=== PATIENT | female | born 1980 | race Caucasian/White ===

== ENCOUNTER 2018-02-08 03:48 | Observation (INO) | END 2018-02-10 12:40 | disposition home or self-care (01) ==

== ENCOUNTER 2019-03-07 12:34 | Inpatient (IN) | payer OTHER ==
[~2019-03-07] VITALS: Ht 160 cm; Wt 100.0 kg
[~2019-03-07 12:34] MED LIST: CEPH-443 PO; DOCU-144 PO; HYDR-4011 PO; LEVO100T8 PO
[2019-03-07 15:23] VITALS: BP 102/59; PULSE 116; RESP 18
[2019-03-07] MEDS: SOD CHLORIDE 0.9% 1,000 ML IV SCH (16:28)
[2019-03-07] MEDS: KETOROLAC 15 MG INJ IV PRN (16:28)
[2019-03-07] MEDS ORDERED: NACL 0.9% 3 ML SYG IV SCH (16:30)
[2019-03-07] MEDS ORDERED: morphine 2 MG INJ IV PRN (16:30)
[2019-03-07 16:47] VITALS: Ht 160 cm; Wt 100.0 kg
[2019-03-07] MEDS: HYDROCODONE/APAP (5/325) TAB PO PRN (18:46)
[2019-03-07 19:50] VITALS: BP 100/61; PULSE 110; RESP 18
[2019-03-07] MEDS: TAMSULOSIN (SR) 0.4 MG CAP PO SCH (20:55)
[2019-03-07] MEDS: ONDANSETRON 4 MG INJ IV PRN (22:10)
[2019-03-07] MEDS: HYDROmorphONE 1 MG/ML SYG IV PRN (22:10)
[2019-03-08] VITALS (19 sets, daily range): BP systolic 102–149; BP diastolic 56–95; PULSE 76–133; RESP 14–25
[2019-03-08] MEDS: HYDROmorphONE 1 MG/ML SYG IV PRN ×2 (01:47→08:49)
[2019-03-08] MEDS ORDERED: ONDANSETRON 4 MG INJ IV STA (01:54)
[2019-03-08] MEDS: ACETAMINOPHEN 325 MG TAB PO PRN (02:24)
[2019-03-08] MEDS: LEVOTHYROXINE 88 MCG TAB PO SCH (06:00)
[2019-03-08] MEDS: SOD CHLORIDE 0.9% 1,000 ML IV SCH ×2 (06:10→20:41)
[2019-03-08] MEDS: CEFTRIAXONE 1 GM/50 ML (PMX) 50 ML IVPB SCH (08:48)
[2019-03-08] MEDS: ONDANSETRON 4 MG INJ IV PRN ×3 (08:55→21:18)
[2019-03-08] MEDS ORDERED: LACTATED RINGER'S 1,000 ML IV ONE (13:00)
[2019-03-08] MEDS ORDERED: ACETAMINOPHEN 1000MG/100ML IV 100 ML IVPB ONE (13:00)
[2019-03-08] MEDS: KETOROLAC 15 MG INJ IV PRN (14:22)
[2019-03-08] MEDS ORDERED: MIDAZOLAM 1 MG/ML 2 ML INJ ONE (18:21)
[2019-03-08] MEDS ORDERED: FENTAnyl 50 MCG/ML VIAL ONE (18:21)
[2019-03-08] MEDS ORDERED: PHENYLephrine 10 MG INJ ONE (18:38)
[2019-03-08] MEDS ORDERED: IOHEXOL 300MG/ML 30 ML BTL ONE (18:57)
[2019-03-08] MEDS ORDERED: LIDOCAINE 2% (SDV) 5 ML INJ ONE (19:16)
[2019-03-08] MEDS ORDERED: PROPOFOL 20 ML ONE (19:16)
[2019-03-08] MEDS ORDERED: ONDANSETRON 4 MG INJ ONE (19:17)
[2019-03-08] MEDS ORDERED: DIPHENHYDRAMINE 50 MG INJ IV PRN (19:30)
[2019-03-08] MEDS ORDERED: METOCLOPRAMIDE 10 MG INJ IV PRN (19:30)
[2019-03-08] MEDS ORDERED: HYDROmorphONE 1 MG/5 ML IV SYRINGE IV PRN ×2 (19:30)
[2019-03-08] MEDS ORDERED: FENTAnyl 50 MCG/ML VIAL IV PRN (19:30)
[2019-03-08] MEDS ORDERED: ONDANSETRON 4 MG INJ IV PRN (19:30)
[2019-03-08] MEDS ORDERED: DIPHENHYDRAMINE 50 MG INJ ONE (19:35)
[2019-03-08] MEDS: TAMSULOSIN (SR) 0.4 MG CAP PO SCH (20:33)
[2019-03-09] MEDS: ONDANSETRON 4 MG INJ IV PRN ×4 (02:30→21:03)
[2019-03-09] MEDS: KETOROLAC 15 MG INJ IV PRN ×2 (02:31→23:51)
[2019-03-09 04:13] VITALS: BP 108/56; PULSE 80; RESP 18
[2019-03-09] MEDS: ACETAMINOPHEN 325 MG TAB PO PRN (05:01)
[2019-03-09] MEDS: LEVOTHYROXINE 88 MCG TAB PO SCH (05:02)
[2019-03-09 07:28] VITALS: BP 103/65; PULSE 78; RESP 22
[2019-03-09] MEDS: HYDROmorphONE 1 MG/ML SYG IV PRN ×3 (08:55→21:03)
[2019-03-09] MEDS: CEFTRIAXONE 1 GM/50 ML (PMX) 50 ML IVPB SCH (08:55)
[2019-03-09] MEDS: SOD CHLORIDE 0.9% 1,000 ML IV SCH ×2 (11:00→21:13)
[2019-03-09 11:51] VITALS: BP 101/73; PULSE 74; RESP 22
[2019-03-09 15:55] VITALS: BP 123/85; PULSE 74; RESP 22
[2019-03-09] MEDS: HYDROCODONE/APAP (5/325) TAB PO PRN (18:05)
[2019-03-09 19:35] VITALS: BP 120/81; PULSE 75; RESP 20
[2019-03-09] MEDS: TAMSULOSIN (SR) 0.4 MG CAP PO SCH (21:03)
[2019-03-10] VITALS: BP 132/87; PULSE 68; RESP 20
[2019-03-10] MEDS: METOCLOPRAMIDE 10 MG INJ IV PRN ×3 (00:11→16:27)
[2019-03-10] MEDS: ONDANSETRON 4 MG INJ IV PRN ×2 (02:56→21:37)
[2019-03-10] MEDS: HYDROmorphONE 1 MG/ML SYG IV PRN ×4 (02:56→21:37)
[2019-03-10 04:00] VITALS: BP 115/71; PULSE 71; RESP 20
[2019-03-10] MEDS: LEVOTHYROXINE 88 MCG TAB PO SCH (06:15)
[2019-03-10 07:36] VITALS: BP 135/92; PULSE 65; RESP 20
[2019-03-10] MEDS: CEFTRIAXONE 1 GM/50 ML (PMX) 50 ML IVPB SCH (09:06)
[2019-03-10] MEDS: SOD CHLORIDE 0.9% 1,000 ML IV SCH (09:07)
[2019-03-10 11:19] VITALS: BP 121/75; PULSE 99; RESP 20
[2019-03-10 15:24] VITALS: BP 125/75; PULSE 78; RESP 20
[2019-03-10 19:46] VITALS: BP 118/77; PULSE 83; RESP 20
[2019-03-10] MEDS: TAMSULOSIN (SR) 0.4 MG CAP PO SCH (20:53)
[2019-03-11] VITALS: BP 127/83; PULSE 70; RESP 20
[2019-03-11] MEDS: HYDROmorphONE 1 MG/ML SYG IV PRN ×4 (03:03→19:50)
[2019-03-11 04:00] VITALS: BP 117/73; PULSE 63; RESP 20
[2019-03-11] MEDS: ACETAMINOPHEN 325 MG TAB PO PRN (05:44)
[2019-03-11] MEDS: LEVOTHYROXINE 88 MCG TAB PO SCH (05:44)
[2019-03-11 07:21] VITALS: BP 130/82; PULSE 66; RESP 18
[2019-03-11] MEDS: METOCLOPRAMIDE 10 MG INJ IV PRN (08:47)
[2019-03-11] MEDS: CEFTRIAXONE 1 GM/50 ML (PMX) 50 ML IVPB SCH (09:31)
[2019-03-11 11:01] VITALS: BP 112/84; PULSE 64; RESP 19
[2019-03-11 15:07] VITALS: BP 138/91; PULSE 59; RESP 19
[2019-03-11 19:42] VITALS: BP 134/76; PULSE 68; RESP 19
[2019-03-11] MEDS: TAMSULOSIN (SR) 0.4 MG CAP PO SCH (20:51)
[2019-03-12] VITALS (7 sets, daily range): BP systolic 118–166; BP diastolic 64–91; PULSE 61–82; RESP 18–20
[2019-03-12] MEDS: HYDROCODONE/APAP (7.5/325) TAB PO PRN ×3 (00:08→19:55)
[2019-03-12] MEDS: HYDROmorphONE 1 MG/ML SYG IV PRN ×4 (03:14→21:23)
[2019-03-12] MEDS: LEVOTHYROXINE 88 MCG TAB PO SCH (06:19)
[2019-03-12] MEDS: ACETAMINOPHEN 325 MG TAB PO PRN (08:09)
[2019-03-12] MEDS: CEFTRIAXONE 1 GM/50 ML (PMX) 50 ML IVPB SCH (08:10)
[2019-03-12] MEDS ORDERED: MAGNESIUM SULFATE 1 GM/D5W 100 ML IVPB ONE (10:30)
[2019-03-12] MEDS: ONDANSETRON 4 MG INJ IV PRN (17:58)
[2019-03-12] MEDS: TAMSULOSIN (SR) 0.4 MG CAP PO SCH (19:54)
[2019-03-13] VITALS (17 sets, daily range): BP systolic 107–139; BP diastolic 54–89; PULSE 63–92; RESP 17–24
[2019-03-13] MEDS: HYDROCODONE/APAP (7.5/325) TAB PO PRN ×3 (00:20→12:48)
[2019-03-13] MEDS: HYDROmorphONE 1 MG/ML SYG IV PRN ×4 (03:34→21:47)
[2019-03-13] MEDS: LEVOTHYROXINE 88 MCG TAB PO SCH (05:30)
[2019-03-13] MEDS: CEFTRIAXONE 1 GM/50 ML (PMX) 50 ML IVPB SCH (09:01)
[2019-03-13] MEDS: METOCLOPRAMIDE 10 MG INJ IV PRN (09:01)
[2019-03-13] MEDS: MEROPENEM 1 GM/50ML(PMX) 50 ML IVPB SCH ×2 (12:40→21:22)
[2019-03-13] MEDS ORDERED: PROPOFOL 20 ML ONE (17:02)
[2019-03-13] MEDS ORDERED: MIDAZOLAM 1 MG/ML 2 ML INJ ONE (17:02)
[2019-03-13] MEDS ORDERED: FENTAnyl 50 MCG/ML VIAL ONE ×2 (17:02→18:38)
[2019-03-13] MEDS ORDERED: CEFAZOLIN 1 GM INJ ONE (17:02)
[2019-03-13] MEDS ORDERED: ROCURONIUM 50 MG INJ ONE (17:02)
[2019-03-13] MEDS ORDERED: EPHEDrine 25 MG/5 ML SYG IV PRN (17:30)
[2019-03-13] MEDS ORDERED: MEPERIDINE 25 MG INJ IV PRN (17:30)
[2019-03-13] MEDS ORDERED: HYDROmorphONE 1 MG/5 ML IV SYRINGE IV PRN ×3 (17:30)
[2019-03-13] MEDS ORDERED: ONDANSETRON 4 MG INJ IV PRN (17:30)
[2019-03-13] MEDS ORDERED: OXYCODONE/ACETAMINOPHEN (5/325) TAB PO PRN (17:30)
[2019-03-13] MEDS ORDERED: hydrALAzine 20 MG INJ IV PRN (17:30)
[2019-03-13] MEDS ORDERED: METOCLOPRAMIDE 10 MG INJ IV PRN (17:30)
[2019-03-13] MEDS ORDERED: FENTAnyl 50 MCG/ML VIAL IV PRN ×3 (17:30)
[2019-03-13] MEDS ORDERED: LABETALOL HCL 20MG INJ IV PRN (17:30)
[2019-03-13] MEDS ORDERED: DIPHENHYDRAMINE 50 MG INJ IV PRN (17:30)
[2019-03-13] MEDS ORDERED: IOHEXOL 300MG/ML 30 ML BTL ONE (18:02)
[2019-03-13] MEDS ORDERED: DEXAMETHASONE 4 MG/ML 5 ML INJ ONE (18:35)
[2019-03-13] MEDS ORDERED: METOCLOPRAMIDE 10 MG INJ ONE (18:35)
[2019-03-13] MEDS ORDERED: KETOROLAC 30 MG INJ ONE (18:35)
[2019-03-13] MEDS ORDERED: ONDANSETRON 4 MG INJ ONE (18:35)
[2019-03-13] MEDS ORDERED: SUGAMMADEX SODIUM 200 MG/2 ML VIAL IV ONE (18:35)
[2019-03-14] MEDS: HYDROCODONE/APAP (7.5/325) TAB PO PRN ×3 (01:24→22:06)
[2019-03-14] MEDS: HYDROmorphONE 1 MG/ML SYG IV PRN ×2 (03:45→09:58)
[2019-03-14 04:08] VITALS: BP 125/69; PULSE 67; RESP 18
[2019-03-14] MEDS: LEVOTHYROXINE 88 MCG TAB PO SCH (06:01)
[2019-03-14 07:20] VITALS: BP 130/73; RESP 18
[2019-03-14] MEDS: MEROPENEM 1 GM/50ML(PMX) 50 ML IVPB SCH ×2 (09:16→20:34)
[2019-03-14 12:01] VITALS: BP 111/62; PULSE 68; RESP 18
[2019-03-14 15:24] VITALS: BP 121/70; PULSE 74; RESP 18
[2019-03-14] MEDS ORDERED: HYDROmorphONE 1 MG/ML SYG IV PRN (15:30)
[2019-03-14] MEDS: HYDROmorphONE 0.5 MG/0.5 ML SYG IV PRN ×2 (16:08→23:42)
[2019-03-14 19:53] VITALS: BP 119/63; PULSE 73; RESP 19
[2019-03-14 23:49] VITALS: BP 116/58; PULSE 79; RESP 20
[2019-03-15] MEDS: HYDROCODONE/APAP (7.5/325) TAB PO PRN ×3 (02:02→20:01)
[2019-03-15 04:00] VITALS: BP 131/81; PULSE 79; RESP 20
[2019-03-15] MEDS: LEVOTHYROXINE 88 MCG TAB PO SCH (06:11)
[2019-03-15 07:09] VITALS: BP 123/81; PULSE 68; RESP 18
[2019-03-15] MEDS: HYDROmorphONE 0.5 MG/0.5 ML SYG IV PRN ×2 (08:26→16:38)
[2019-03-15] MEDS: MEROPENEM 1 GM/50ML(PMX) 50 ML IVPB SCH ×2 (08:27→20:01)
[2019-03-15 11:37] VITALS: BP 107/64; PULSE 76; RESP 18
[2019-03-15 15:05] VITALS: BP 125/73; PULSE 71; RESP 16
[2019-03-15 20:24] VITALS: BP 117/65; PULSE 78; RESP 20
[2019-03-16] VITALS: BP 125/71; PULSE 75; RESP 20
[2019-03-16] MEDS: HYDROmorphONE 0.5 MG/0.5 ML SYG IV PRN ×4 (00:46→23:54)
[2019-03-16 04:10] VITALS: BP 111/62; PULSE 71; RESP 18
[2019-03-16] MEDS: LEVOTHYROXINE 88 MCG TAB PO SCH (06:49)
[2019-03-16] MEDS: HYDROCODONE/APAP (7.5/325) TAB PO PRN (06:49)
[2019-03-16 07:55] VITALS: BP 110/71; PULSE 85; RESP 18
[2019-03-16] MEDS: MEROPENEM 1 GM/50ML(PMX) 50 ML IVPB SCH ×2 (08:47→23:53)
[2019-03-16 12:00] VITALS: BP 133/77; PULSE 73; RESP 18
[2019-03-16 17:00] VITALS: BP 132/74; PULSE 78; RESP 18
[2019-03-16 19:30] VITALS: BP 115/59; PULSE 78; RESP 20
[2019-03-17 00:06] VITALS: BP 122/65; PULSE 82; RESP 20
[2019-03-17] MEDS: HYDROCODONE/APAP (7.5/325) TAB PO PRN ×3 (00:13→21:31)
[2019-03-17 04:54] VITALS: BP 98/52; PULSE 95; RESP 18
[2019-03-17] MEDS: LEVOTHYROXINE 88 MCG TAB PO SCH (06:45)
[2019-03-17 07:18] VITALS: BP 106/55; PULSE 86; RESP 18
[2019-03-17] MEDS: MEROPENEM 1 GM/50ML(PMX) 50 ML IVPB SCH ×2 (08:51→20:19)
[2019-03-17] MEDS: HYDROmorphONE 0.5 MG/0.5 ML SYG IV PRN ×2 (08:51→17:58)
[2019-03-17 11:12] VITALS: BP 109/67; PULSE 94; RESP 19
[2019-03-17 15:28] VITALS: BP 117/65; PULSE 92; RESP 19
[2019-03-17 19:45] VITALS: BP 112/67; PULSE 90; RESP 18
[2019-03-18] VITALS: BP 116/69; PULSE 89; RESP 18
[2019-03-18] MEDS: HYDROmorphONE 0.5 MG/0.5 ML SYG IV PRN (02:25)
[2019-03-18 04:26] VITALS: BP 120/71; PULSE 85; RESP 17
[2019-03-18] MEDS: LEVOTHYROXINE 88 MCG TAB PO SCH (06:36)
[2019-03-18 07:29] VITALS: BP 118/86; PULSE 88; RESP 18
[2019-03-18] MEDS: MEROPENEM 1 GM/50ML(PMX) 50 ML IVPB SCH ×2 (08:33→20:47)
[2019-03-18] MEDS: HYDROCODONE/APAP (7.5/325) TAB PO PRN ×2 (08:33→18:24)
[2019-03-18 11:49] VITALS: BP 105/61; PULSE 80; RESP 18
[2019-03-18 15:41] VITALS: BP 126/66; PULSE 89; RESP 18
[2019-03-18 20:00] VITALS: BP 128/78; PULSE 82; RESP 20
[2019-03-19] VITALS: BP 127/78; PULSE 80; RESP 20
[2019-03-19] MEDS: HYDROCODONE/APAP (7.5/325) TAB PO PRN ×2 (01:00→07:55)
[2019-03-19 04:00] VITALS: BP 108/63; PULSE 74; RESP 20
[2019-03-19] MEDS: LEVOTHYROXINE 88 MCG TAB PO SCH (06:12)
[2019-03-19 07:20] VITALS: BP 105/62; PULSE 72; RESP 18
[2019-03-19] MEDS: MEROPENEM 1 GM/50ML(PMX) 50 ML IVPB SCH (10:10)
[2019-03-19 11:06] VITALS: BP 118/57; PULSE 86; RESP 18
== END 2019-03-19 12:45 | disposition home or self-care (01) | DRG 854 ==
LOC: 2NE 15:00 → TEL 03-08 13:15
PROVIDERS: ADMIT Internal Medicine; ATTEND Internal Medicine
PROC: 0T768DZ Dilation of Right Ureter with Intraluminal Device, Via Natural or Artificial Opening Endoscopic (ICD-10-PCS; principal; 2019-03-08 17:30)
PROC: 0TC68ZZ Extirpation of Matter from Right Ureter, Via Natural or Artificial Opening Endoscopic (ICD-10-PCS; 2019-03-13)
PROC: 0T768DZ Dilation of Right Ureter with Intraluminal Device, Via Natural or Artificial Opening Endoscopic (ICD-10-PCS; 2019-03-13)
PROC: 0TP98DZ Removal of Intraluminal Device from Ureter, Via Natural or Artificial Opening Endoscopic (ICD-10-PCS; 2019-03-13)
DX: A41.9 Sepsis, unspecified organism (principal); E87.2 Acidosis; N13.2 Hydronephrosis with renal and ureteral calculous obstruction; N12 Tubulo-interstitial nephritis, not specified as acute or chronic; N13.6 Pyonephrosis; N11.1 Chronic obstructive pyelonephritis; R65.20 Severe sepsis without septic shock; E66.01 Morbid (severe) obesity due to excess calories; E03.9 Hypothyroidism, unspecified; Z68.39 Body mass index [BMI] 39.0-39.9, adult
CPT/HCPCS: 71045; 74018; 74176; 74430; 80048; 80053; 80061; 81001; 82962; 83036; 83605; 83735; 84100; 84443; 84484; 84703; 85025; 85610; 85730; 87086; 88300; 93005; C2617; J0131; J0690; J0696; J1100; J1170; J1200; J1885; J2185; J2250; J2270; J2370; J2405; J2765; J3010; J3475; J7030; J7120; Q9967